=== PATIENT | male | born 1985 | race African-American/Black ===

== ENCOUNTER 2025-07-26 09:44 | Emergency (ER) | payer SELFPAY ==
[~2025-07-26] VITALS: Ht 182.9 cm; Wt 89.1 kg
[~2025-07-26 09:44] MED LIST: NOCURR
[2025-07-26 09:45] VITALS: TEMP 98.2
[2025-07-26 10:00] VITALS: BP 111/77; PULSE 98; RESP 18; O2SAT 100
[2025-07-26 10:12] LABS: APPEARANCE,URINE CLEAR (CLEAR); GLUCOSE, URINE (UA) NEGATIVE (NEGATIVE); LEUKOCYTE ESTERASE ,URINE NEGATIVE (NEGATIVE); NITRATE,URINE NEGATIVE (NEGATIVE); OCCULT BLOOD,URINE NEGATIVE (NEGATIVE); SPECIFIC GRAVITIY, URINE 1.031 (1.003-1.030)
[2025-07-26 10:14] LABS: PLATELET COUNT (AUTO) 211 K/uL (150-450); RED BLOOD CELL COUNT(AUTO) 5.56 MIL/uL (4.50-5.90); RED CELL DISTRIBUTION WIDTH 14.3 % (11.5-14.5); WHITE BLOOD COUNT (AUTO) 6.5 K/uL (4.5-11.0)
[2025-07-26] MEDS: CefTRIAXone SODIUM 1 GM/VIAL IM ONE (10:16)
[2025-07-26] MEDS: DOXYCYCLINE HYCLATE 100 MG TABLET PO ONE (10:17)
[2025-07-26] MEDS: LIDOCAINE/PF 1% 2 ML VIAL IM ONE (10:17)
[2025-07-26 10:25] LABS: CALCIUM, TOTAL 8.8 mg/dL (8.8-10.5); CREATININE 0.86 mg/dL (0.60-1.30); GLOMERULAR FILTR. RATE CALC > 60 mL/min (>60); GLUCOSE,RANDOM 94 mg/dL (70-110); SODIUM SERUM 140 mmol/L (136-145); UREA NITROGEN, BLOOD 9 mg/dL (7-18)
[2025-07-26] MEDS ORDERED: DOXY-354 PO (10:54)
== END 2025-07-26 13:04 | disposition home or self-care (01) ==
LOC: EMS 09:44
DX: R30.0 Dysuria (principal); Z11.3 Encounter for screening for infections with a predominantly sexual mode of transmission
CPT/HCPCS: 99283; 86592; 80048; 81003; 85025; 36415; 87491; 87591; 96372; J0696; J3490